=== PATIENT | female | born 1985 | race Caucasian/White ===

== ENCOUNTER 2018-04-27 12:09 | Emergency (ER) | payer OTHER, BC ==
[2018-04-27] MEDS: NORCO, ANEXSIA 5/325MG TABLET (HYDROcodone/ACETAMINOPHEN) PO ×2 (15:05→16:30)
[2018-04-27 17:42] LABS: BASO # 0.1 10^3/uL (0.0-0.2); BASO % 0.9 % (0.0-1.0); EOS # 0.4 10^3/uL (0.0-0.50); EOS % 4.6 % (0.0-3.0); HEMATOCRIT 39.1 % (36.0-47.0); HEMOGLOBIN 12.2 g/dl (12.0-15.5); IMMATURE GRANULOCYTE % 0.3 % (0-3.0); LYMPH # 2.6 10^3/uL (1.5-4.5); LYMPH % 26.7 % (24.0-44.0); MEAN CORPUSCULAR HEMOGLOBIN 28.6 pg (27.0-33.0); MEAN CORPUSCULAR HGB CONC 31.2 g/dl (32.0-36.5); MEAN CORPUSCULAR VOLUME 91.8 fl (80.0-96.0); MONO # 0.7 10^3/uL (0.0-0.8); MONO % 7.5 % (0.0-5.0); NEUTROPHILS # 5.8 10^3/uL (1.8-7.7); PLATELET COUNT, AUTOMATED 381 10^3/uL (150-450); RED BLOOD COUNT 4.26 10^6/uL (4.00-5.40); RED CELL DISTRIBUTION WIDTH 14.1 % (11.5-14.5); WHITE BLOOD COUNT 9.6 10^3/uL (4.0-10.0)
[2018-04-27 18:03] LABS: ALBUMIN 3.5 GM/DL (3.2-5.2); ALKALINE PHOSPHATASE 132 U/L (45-117); ALT/SGPT 22 U/L (12-78); ANION GAP 7 MEQ/L (8-16); AST/SGOT 15 U/L (7-37); BILIRUBIN,TOTAL 0.3 MG/DL (0.2-1.0); BLOOD UREA NITROGEN 9 MG/DL (7-18); CALCIUM LEVEL 8.5 MG/DL (8.5-10.1); CARBON DIOXIDE LEVEL 28 MEQ/L (21-32); CHLORIDE LEVEL 106 MEQ/L (98-107); CK-MB VALUE MASS < 1.0 NG/ML (<3.6); CPK CREATINE PHOSPHOKINASE 61 U/L (26-192); CREATININE FOR GFR 0.82 MG/DL (0.55-1.30); GLOMERULAR FILTRATION RATE > 60.0 (>60); GLUCOSE, FASTING 89 MG/DL (70-100); MB/CK RELATIVE INDEX 1.63 (< OR =4); POTASSIUM SERUM 4.8 MEQ/L (3.5-5.1); SODIUM LEVEL 141 MEQ/L (136-145); TOTAL PROTEIN 7.4 GM/DL (6.4-8.2); TROPONIN I < 0.02 NG/ML (< 0.10)
[2018-04-27] MEDS: METOPROLOL TART 50 MG TAB PO (18:55)
== END 2018-04-27 19:35 | disposition home or self-care (01) ==
LOC: M ED 12:09
DX: S62.201A Unspecified fracture of first metacarpal bone, right hand, initial encounter for closed fracture (principal); R00.1 Bradycardia, unspecified; W19.XXXA Unspecified fall, initial encounter; Y92.9 Unspecified place or not applicable; Y93.9 Activity, unspecified; Y99.9 Unspecified external cause status; I10 Essential (primary) hypertension; Z98.84 Bariatric surgery status
CPT/HCPCS: 73130

== ENCOUNTER → 2021-02-25 | Outpatient (REF) ==
[~2021-02-25] MED LIST: ATEN50TA2 PO; FLUO20CA22 PO; GABA600T4 PO; HYDR-3715 PO; LISI20TA33 PO; TIZA4CAP PO
--- NOTE | 2021-02-25 09:15 | REPPI ---
INDICATION: DDD DISABILITY DIAGNOSIS DETERMINATION COMPARISON: None. TECHNIQUE: AP and frog-lateral views of the right hip FINDINGS: Moderate early degenerative changes include subtle spurring along the femoral head/neck as well as mild joint space narrowing and early spurring along the acetabular roof. No acute fracture or dislocation. IMPRESSION: Mild/moderate early degenerative changes. <Electronically signed by Terrance Zavaleta > 02/25/21 0946
--- NOTE | 2021-02-25 09:17 | REPPI ---
INDICATION: DDD DISABILITY DIAGNOSIS DETERMINATION COMPARISON: None. TECHNIQUE: AP, lateral, coned-down views of the lumbar spine. FINDINGS: Patient is noted to be status post laminectomy and posterior fixation at the L5-S1 level. Alignment and lordosis are maintained. T11-12 through L4-5 levels appears relatively normal for age. IMPRESSION: 1. No acute fracture / compression injury or subluxation. 2. Prior posterior fixation and laminectomy at L5-S1. <Electronically signed by Terrance Zavaleta > 02/25/21 0998
== END ==
LOC: M PLAIMG 08:27
PROVIDERS: ATTEND Internal Medicine
DX: Z02.71 Encounter for disability determination (principal); Z98.890 Other specified postprocedural states